=== PATIENT | male | born 1970 | race Caucasian/White ===

== ENCOUNTER → 2023-12-15 15:36 | Outpatient (REF) | payer BC, SELFPAY | LOC: CLAB 15:36 | PROVIDERS: ATTENDING PHYSICIAN Surgery | DX: Z11.51 Encounter for screening for human papillomavirus (HPV) (principal) | CPT/HCPCS: 87624; 88112 ==

== ENCOUNTER → 2024-01-13 03:41 | Outpatient (REF) | payer BC, SELFPAY | LOC: CPAP 03:41 | PROVIDERS: ATTENDING PHYSICIAN Surgery | DX: R85.613 High grade squamous intraepithelial lesion on cytologic smear of anus (HGSIL) (principal) | CPT/HCPCS: 88305 ==

== ENCOUNTER → 2024-11-19 15:35 | Outpatient (REF) | payer BC, SELFPAY | LOC: CLAB 15:35 | PROVIDERS: ATTENDING PHYSICIAN Surgery | DX: K64.4 Residual hemorrhoidal skin tags (principal) | CPT/HCPCS: 88304 ==